=== PATIENT | female | born 1950 | race Caucasian/White ===

== ENCOUNTER 2020-08-24 09:42 | Outpatient (CLI) | payer MEDICARE, BC ==
[~2020-08-24 09:42] MED LIST: LACT1CAP65 PO; LEVO5TAB29 PO; LOP25T PO; METF500T PO; RIVA20TA PO; THY60T PO; TRIA10.8 BOTHNARES; UBID100C16 PO
== END 2020-08-24 23:59 | disposition home or self-care (01) ==
LOC: RAD 09:42
PROVIDERS: ATTEND Family Medicine
DX: M47.22 Other spondylosis with radiculopathy, cervical region (principal); M48.02 Spinal stenosis, cervical region; M25.78 Osteophyte, vertebrae; M50.122 Cervical disc disorder at C5-C6 level with radiculopathy
CPT/HCPCS: 72141

== ENCOUNTER 2021-05-08 09:39 | Outpatient (CLI) | payer MEDICARE, BC | END 2021-05-08 23:59 | disposition home or self-care (01) | LOC: RAD 09:39 | PROVIDERS: ATTEND Physician Assistant | DX: M47.812 Spondylosis without myelopathy or radiculopathy, cervical region (principal); M48.02 Spinal stenosis, cervical region; M25.78 Osteophyte, vertebrae; E04.1 Nontoxic single thyroid nodule | CPT/HCPCS: 72141 ==